=== PATIENT | female | born 1995 | race Caucasian/White ===

== ENCOUNTER 2022-05-18 10:03 | Emergency (ER) | payer SELFPAY ==
[2022-05-18] MEDS ORDERED: Dextrose 5%-0.9% NaCl 1,000 ML IV SCH (10:45)
[2022-05-18] MEDS ORDERED: Albuterol 6.7 GM Inhaler INH SCH (11:00)
[2022-05-18 11:14] LABS: CORONAVIRUS COVID-19 NAA NEGATIVE (NEGATIVE)
[2022-05-18] MEDS ORDERED: Albuterol/Ipratropium 3.0-0.5 MG/3 ML Neb Soln NEB PRN (11:42)
== END 2022-05-18 12:24 | disposition home or self-care (01) ==
LOC: JD.ED 10:03
DX: J45.901 Unspecified asthma with (acute) exacerbation (principal); J03.90 Acute tonsillitis, unspecified; Z91.040 Latex allergy status; Z28.310 Unvaccinated for COVID-19; Z20.822 Contact with and (suspected) exposure to COVID-19
CPT/HCPCS: 0240U; 36415; 71045; 80053; 83735; 84703; 85025; 86140; 94640; 96360; 99285; A9270; J7042; J7620-GY